=== PATIENT | male | born 1945 | race Caucasian/White ===

== ENCOUNTER 2016-11-01 18:43 | Inpatient (IN) | payer MEDICARE ==
[~2016-11-01] VITALS: Ht 175.3 cm; Wt 130.4 kg
[~2016-11-01 18:43] MED LIST: ACTOPLUS MET 501 TAB PO; ALDACTONE 25MG25 MG NG; AMARYL1 MG PO; AMARYL2 MG PO; ASPIRIN 325MG325 MG PO; ASPIRIN 81MG TA81 MG PO; ASPIRIN325 MG PO; BENZONATATE100 MG PO; CARVEDILOL 25MG25 MG PO; CIPRO 500MG TA500 MG PO; COREG25 MG PO; DILANTIN100 MG PO; FUROCOT40 MG PO; FUROSEMIDE 20MG20 MG PO; GABAPENTIN300 MG PO; KEFLEX 500MG.500 MG PO; LASIX 40MG. TAB40 MG PO; LEVAQUIN 750 M750 MG PO; LIPITOR10 MG PO; LIPITOR20 MG PO; LISINOPRIL 10MG10 MG PO; LISINOPRIL 20MG20 MG PO; LISINOPRIL10 MG PO; LOSARTAN POTASS50 MG PO; MECLIZINE12.5 MG PO; METFORMIN1000 MG PO; NICODERM C21 MG/24 H TD; NITROGLYCERIN0.4 MG SL; NOMEDS *; NORCO 325 MG-51 TAB PO; POTASSIUM CHLO20 ME2 PO; RELION NOVOLIN10 ML SC; SPIRONOLACTONE25 MG PO; TAMSULOSIN HYD0.4 MG PO; TESSALON PERLE100 MG PO; TRICOR 145 MG145 MG PO; VITAMIN D31000 IU PO
[2016-11-01 18:45] VITALS: BP 162/87
--- NOTE | 2016-11-01 19:05 | Emergency Room Report ---
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 N Clinical Suspician of Infection? N Mental Status: 1 - Regular (Normal Baseline) Sepsis Risk:Low Sepsis Risk Have you (or family members/close friends) recently traveled outside the [place]? N If Yes, where/when: Have you had exposure to infectious disease within the past month? N TB? Other? Specify: Patient noncompliant with meds; reports hx CHF and , progressive wheezing with dry cough last few days, no fever or vomiting. Sats 100 per cent on arrival per EMS with no intervention in the field. No calf pain. ALLERGIES Coded Allergies: No Known Drug Allergies (05/08/16) (Ryan MCFARLANE, Erika Stone) Home Medications Active Scripts PHENYTOIN SODIUM EXTENDED (Dilantin) 300 MG PO QHS 30 Days Prov: 03/23/16 Reported Medications ASPIRIN (Aspirin 325MG) 325 MG PO DAILY Gabapentin (Gabapentin 300MG) 300 MG PO BID Carvedilol (Carvedilol 25MG) 25 MG PO BID LISINOPRIL (Lisinopril) 20 MG PO DAILY NITROGLYCERIN (Nitrostat) 0.4 MG SL PRN PRN CHEST PAIN Glimepiride (Amaryl) 2 MG PO DAILY INSULIN NPH HUM/REG INSULIN HM (Relion Novolin 70-30 Vial) 5 UNITS SC BID #10 (Felipa MCFARLANE,Darek Montez) History Medical History General CAD? Yes Angina: Yes [place]: Yes Hypertension? Yes Hyperlipidemia? Yes CHF? Yes DVT? No PE? No COPD? No Asthma? No Anemia? No GERD? No Gastric ulcers? No GI Bleed? No Hernia? Yes Thyroid Problems? No Hypothyroidism? No CVA? No Seizures? Yes Diabetes? Yes Insulin Dependent: Yes Insulin Pump: No Home FSBS? Yes Renal Insuffiency? No End Stage Renal Disease? No UTI? No Stones? No BPH? No GB Disease: Yes Nephritic Syndrome? No Asplenia? No Hepatitis? Yes Sickle Cell Disease? No Arthritis? Yes Migraines? No Cataracts? Yes Glaucoma? No MRSA? No HIV? No TB? No Anxiety? No Depression? No Cancer? No More? No Immunization Hx DT/Tetanus Unknown Flu Refused Pneumonia Unknown Surgical Hx Previous Surgery?Y Gallbladd CABG X 4 RECTAL CYST Family History Family Hx Diabetes Yes CAD Yes Hypertension Yes Hyperlipidemia Yes Cancer Yes TB No Social History Smoking Hx Smoker: Former Smoker Tobacco: Yes Type Cigarettes Packs/day < 1 Pack Alcohol Alcohol: No (Erika Davis MD) Social History Drugs none (Darek Leo MD) Review of Systems All Other Systems Reviewed and Negative Respiratory see HPI (Erika Davis MD) Cardiovascular denies chest pain, denies palpitations, denies syncope Gastrointestinal denies abdominal pain, denies diarrhea, denies vomiting Genitourinary denies: dysuria, frequency, hesitancy, hematuria. Musculoskeletal denies back pain, denies joint pain, denies joint swelling, denies neck pain Skin denies rash Psychiatric/Neurological see HPI, denies seizure, weakness (Darek Leo MD) Physical Exam Vital Signs Vital Signs Date Time Temp Pulse Resp B/P Pulse O2 O2 Flow FiO2 Ox Delivery Rate 11/02 2019 76 20 174/83 98 11/01 1845 98.2 82 20 162/87 98 General Appearance normal appearance, WD/WN, no apparent distress Eye Exam - bilateral eye normal exam, bilateral eye PERRL, bilateral eye EOMI Neck normal inspection, non-tender, supple, full range of motion Respiratory Status Yes: trachea midline, chest symmetrical, non tender chest, non productive cough. No: respiratory distress, tender on palpation, use of accessory muscles, pain on inspiration, pain on expiration, productive cough. Lung Sounds bilateral: normal breath sounds, lungs clear, wheezing (very mild end expiratory ). Cardiovascular normal exam, regular rate/rhythm, no peripheral edema, no gallop, no JVD, no murmur, no rub, normal peripheral pulses Gastrointestinal normal bowel sounds, normal exam, non tender, soft, no organomegaly, no pulsatile mass, no guarding, no rebound Extremities non-tender, normal range of motion, normal inspection, normal capillary refill, no calf tenderness, no pedal edema Neurologic alert, normal exam, no motor/sensory deficits, oriented x 3 (speech clear; no tremor) Skin intact, warm/dry, pallor Lymphatic no adenopathy (Ryan MCFARLANE, Erika Stone) Strength 4 Upper Ext (L), 4 Upper Ext (R), 4 Lower Ext (L), 4 Lower Ext (R) Mental status altered mental status (Felipa MCFARLANE,Darek Montez) Medical Decision Making LABS/Meds/Orders Pt receiving controlled substance in ED? No Lavelle was queried for this patient? No Results/Orders Laboratory Tests 11/01/161939: TSH Pending, Thyroxine (T4) Pending 11/01/161939: Lactic Acid 0.5 11/01/161939: Sodium 114 *L, Potassium 4.1, Chloride 86 L, Carbon Dioxide 17 L, BUN 22 H, Creatinine 2.0 H, Estimated Creat Clear 67, Estimated GFR (MDRD) 33, Glucose 131 H, Calcium 7.9 L, Total Bilirubin 0.4, AST 14 L, ALT 17, Alkaline Phosphatase 168 H, Troponin I 0.02, B-Natriuretic Peptide 1110 H, Total Protein 5.9 L, Albumin 3.2 L, Globulin 2.7, Albumin/Globulin Ratio 1.2, WBC 6.0, RBC 3.01 L, Hgb 9.0 L, Hct 24.9 L, MCV 82.2, RDW 15.4, Plt Count 130 L, MPV 5.5 L, Gran % 80.4 H, Gran # 4.9, Lymphocytes % 12.1, Monocytes % 5.4, Eosinophils % 1.9, Basophils % 0.2, Lymphocytes # 0.7, Monocytes # 0.3, Eosinophils # 0.1, Basophils # 0.0, PUBS MCHC 36.4 H, MCH 30.0 Current Medication Orders Sig/Cr Start time Last Medication Dose Route Stop Time Status Admin Miscellaneous 1 UNIT ONCE ONE 11/01 2029 DC 11/01 XX 11/01 Albuterol 0 .STK-MED ONE 11/02 2019 DC IH Miscellaneous 0 .STK-MED ONE 11/02 2019 DC XX Sodium Chloride 1,000 ML .STK-MED ONE 11/02 2015 DC IV Ondansetron HCl 4 MG ONCE ONE 11/01 2014 DC 11/01 IV 11/02 2015 2004 Sodium Chloride 1,000 ML .Q1H1M 11/01 2014 DC 11/01 IV 11/01 Sodium Chloride 10 ML PRN PRN 11/01 2014 AC IV 11/02 2013 Albuterol 1 PUFFS ONCE ONE 11/01 1944 DC IH 11/01 1945 Albuterol 2 PUFFS ONCE ONE 11/01 1944 DC 11/01 IH 11/01 Miscellaneous 1 UNIT ONCE ONE 11/01 1944 CAN XX 11/01 1945 Orders Procedure Date/time Status DIET-NOTHING BY MOUTH 11/02 B Active Decision to admit 11/02 2123 Active THYROID STIMULATING HORMONE 11/01 2121 Active THYROXINE (T4) 11/[address] ABD & PELVIS W/O CONTRAST 11/[address] ABD/PELVIS REQ 11/01 2014 Complete URINALYSIS/COMPLETE 11/01 2014 Active RT REQUEST ALBUTEROL INHALER 11/01 1941 Active RT REQUEST ALBUTEROL INHALER 11/01 1940 Active 12 LEAD EKG-JACINTA (INITIAL) 11/01 1849 Active ELECTROCARDIOGRAM REQUEST 11/01 1849 Active CHEST-PORTABLE 11/01 1849 Active CULTURE, BLOOD 11/01 1849 Active TROPONIN I 11/01 1849 Complete LACTIC ACID 11/01 1849 Complete CBC WITH AUTO DIFF 11/01 1849 Complete CHEM 12 PROFILE 11/01 1849 Complete BRAIN NATRIURETIC PEPTIDE 11/01 1849 Complete CM/EKG CM/EKG EKG rate, NSR, rhythm, no ectopy, normal QRS, normal [place], normal EKG, compared w/(date of old) (no change from 03/12/16), first degree AVB seen previously; poor R wave progression, nonspecific ST changes. XRAY/CT/US XRAY/CT/US XRAY chest XR interpretation by reviewed by me Xray Results prominent vasculature, CM, sternotomy wires seen previously;neg acute Pulmonary Embolism Score WELL'S CRITERIA FOR PE WELL'S CRITERIA FOR PE Response Value Clinical signs/symptoms of DVT NO 0 PE is #1 diagnosis or equally likely NO 0 Heart rate is > 100 NO 0 Immobile at least 3 days, or surgery in past 4 wks NO 0 Previously, obj. diagnosed PE or DVT NO 0 Hemoptysis NO 0 Malignancy w/Rx within 6mo, or palliative NO 0 Total 0 (Erika Davis MD) LABS/Meds/Orders Pt receiving controlled substance in ED? No XRAY/CT/US XRAY/CT/US 2 CT abdomen, pelvis CT interpretation by discussed w/radiologist Time results known: 2124 CT Results abnormal (see chart) (Darek Leo MD) Departure Departure Time of Disposition 1948 Disposition Still a Patient Condition STABLE Referrals Felipa MCFARLANE,Jace Montez (Family) Patient Instructions Cough Additional Instructions Inhaler one to two puffs every four to six hours as needed for wheezing. ED Critical Care Critical Care No (Erika Davis MD) Departure Clinical Impression Primary Impression: Wheezing on expiration Secondary Impressions: Anemia Qualifiers: Anemia type: unspecified type Qualified Code: D64.9 - Anemia, unspecified Hyponatremia Renal insufficiency (Darek Leo MD) at 1955 at 2127
[2016-11-01 20:19] LABS: LYMPH # 0.7 K/mm3 (0.7-4.5); LYMPH % 12.1 % (10-50)
[2016-11-01 22:41] VITALS: BP 147/84
[2016-11-01 22:46] VITALS: BP 147/84
[2016-11-01] MEDS ORDERED: LIPITOR40 MG PO (23:09)
[2016-11-01] MEDS ORDERED: HYDRALAZINE HCL25 M1 PO (23:10)
[2016-11-01] MEDS ORDERED: ISOSORBIDE MONO60 MG PO (23:11)
[2016-11-01] MEDS ORDERED: SPIRONOLACTONE25 MG PO (23:11)
[2016-11-01] MEDS ORDERED: AMLODIPINE10 M2 PO (23:12)
[2016-11-02 04:00] VITALS: BP 174/86
[2016-11-02 06:23] LABS: LYMPH # 0.7 K/mm3 (0.7-4.5)
[2016-11-02 06:29] LABS: HEMOGLOBIN 8.7 g/dL (14.1-18.0)
[2016-11-02 08:00] VITALS: BP 171/96
--- NOTE | 2016-11-02 08:01 | RADIOLOGY REPORT PS360 ---
CHEST-PORTABLE HISTORY: wheezing and cough hx COPD ORDERING PHYSICIAN: Erika Davis MD PATIENT AGE: 71 years COMPARISON: 03/22/2016 FINDINGS: Prior median sternotomy. Low lung volumes with motion artifact. Cardiomegaly. The lung bases are secured from the motion. Right perihilar consolidation/pneumonia. Small bilateral effusions. IMPRESSION: Limited exam demonstrating right perihilar consolidation/pneumonia or mass with small bilateral effusions. Follow-up recommended
--- NOTE | 2016-11-02 08:24 | RADIOLOGY REPORT PS360 ---
CT ABD PELVIS W/O CONTRAST CLINICAL INDICATION: ABD PAIN WITH DIARRHEA ORDERING PHYSICIAN: Jace Leo MD PATIENT AGE: 71 years COMPARISON: 03/30/2014 TECHNIQUE: Axial images obtained with sagittal and coronal reformats. PROCEDURE: Oral Contrast: None IV Contrast: None . FINDINGS: Lower thorax: There are bilateral pleural effusions with bibasilar atelectatic changes ABDOMEN: Considerable artifact is present from patient's arms by his side. Liver: No masses or biliary dilatation. Gallbladder: Cholecystectomy no obvious biliary dilatation Pancreas: No masses or peripancreatic fluid collections. Spleen: Unremarkable. Adrenals: Unremarkable Kidneys/ureters: No hydronephrosis or obstructing renal or ureteral calculi. There is bilateral scarring. Stomach bowel: There is an umbilical hernia containing fat measuring 3 cm in diameter. No intragraft bowel. No intestinal obstruction or free air. Bowel gas pattern is nonspecific. Appendix: No evidence of appendicitis. PELVIS: Bladder:: Mild nonspecific thickening of the urinary bladder wall with mild distention of the urinary bladder. Reproductive: Mild prostate calcification ABDOMEN & PELVIS: Peritoneum: No abnormal fluid collections. No obvious inflammatory changes. No free air. Lymph nodes: No enlarged lymph nodes apparent. Vasculature: No evidence of abdominal aortic aneurysm. No retroperitoneal hemorrhage evident. Bones: No acute fracture IMPRESSION: 1. Moderate-sized umbilical hernia containing fat. 2. Limited exam secondary to artifact. No definite acute intra-abdominal or pelvic pathology evident. 3. Other nonacute findings. 4. Bilateral pleural effusions with bibasilar atelectatic change
[2016-11-02] MEDS ORDERED: PHENYTOIN 100M100 MG PO (08:55)
--- NOTE | 2016-11-02 08:58 | HISTORY AND PHYSICAL REPORT ---
Demographics: Admit date: 11/01/16 Chief complaint: weakness PRIMARY DIAGNOSIS: HYPONATREMIA Allergies: Coded Allergies: No Known Allergies (11/02/16) History of present illness: History of present illness: this wm who has progressive weakness over the last few days with inc sob - pt with no chest pain and no melena and reports dec po intake and no excessive po water intake - pt reports blood sugar have been sl high - pt with dec adl- he was seen in the ed and and despite fluids still symptomatic and was admitted Past medical history: Family HX Diabetes Yes CAD Yes Hypertension Yes Hyperlipidemia Yes Cancer Yes TB No Immunization HX DT/Tetanus Has Never Had Flu Refused Pneumonia Never Had TB Test in last year No General CAD? Yes Angina: Yes [place]: Yes Hypertension? Yes Hyperlipidemia? Yes CHF? Yes DVT? No PE? No COPD? No Asthma? No Anemia? No GERD? No Gastric ulcers? No GI Bleed? No Hernia? Yes Thyroid Problems? No Hypothyroidism? No CVA? No Seizures? Yes Diabetes? Yes Insulin Dependent: Yes Insulin Pump: No Home FSBS? Yes Renal Insuffiency? No UTI? No Stones? No BPH? No GB Disease: Yes Nephritic Syndrome? No Asplenia? No Hepatitis? Yes Sickle Cell Disease? No Arthritis? Yes Migraines? No Cataracts? Yes Glaucoma? No MRSA? No HIV? No TB? No Anxiety? No Depression? No Cancer? No More? No Past Surgical HX Previous Surgery?Y Gallbladd CABG X 4 RECTAL CYST Current home meds: Active Scripts PHENYTOIN SODIUM EXTENDED (Dilantin) 300 MG PO QHS 30 Days Prov: 03/23/16 Reported Medications Carvedilol (Carvedilol 25MG) 25 MG PO BID NITROGLYCERIN (Nitrostat) 0.4 MG SL PRN PRN CHEST PAIN ASPIRIN (Aspirin 325MG) 325 MG PO DAILY Glimepiride (Amaryl) 2 MG PO DAILY Atorvastatin Calcium (Atorvastatin) 40 MG PO DAILY Hydralazine Hcl (Hydralazine 25MG Tab) 25 MG PO TID Spironolactone (Spironolactone) 25 MG PO DAILY ISOSORBIDE MONONITRATE (Isosorbide Mononitrate ER) 60 MG PO QAM Amlodipine Besylate (Amlodipine) 10 MG PO DAILY PHENYTOIN SODIUM EXTENDED (Phenytoin 100MG Capsule) 200 MG PO DAILY Social Hx: Smoking HX Tobacco Yes Type Cigarettes Packs/day < 1 PACK Alcohol Alcohol: No Hx of Drug Use Drug Use? No Patien't marital status is Patient's support system is good Review of systems: Constitutional No: fever. Eyes No: drainage. Ears, Nose, Mouth, Throat No ear pain, No epistaxis, No throat pain Respiratory shortness of breath. No: cough, wheezing. Cardiovascular No chest pain, No palpitations, No syncope Gastrointestinal/Abdominal see HPI, No abdominal pain, nausea, poor appetite, poor fluid intake, No vomiting Genitourinary No: dysuria, frequency, hesitancy, hematuria. Musculoskeletal No: back pain, joint pain, joint swelling, neck pain. Skin No: rash. Neurological Yes: see HPI, weakness. No: headache, seizure disorder. Psychiatric No: depressed. Exam: Lab data for last 24 hours: Laboratory Tests 11/02/16 0637: POC Glucose 117 H 11/02/16 0605: Sodium 116 L, Potassium 3.9, Chloride 89 L, Carbon Dioxide 18 L, BUN 22 H, Creatinine 2.0 H, Estimated Creat Clear 62, Estimated GFR (MDRD) 33, Glucose 106, Calcium 7.8 L, WBC 5.3, RBC 2.93 L, Hgb 8.7 L, Hct 23.8 *L, MCV 80.6 L, RDW 15.2, Plt Count 105 L, MPV 5.3 L, Gran % 78.1, Gran # 4.2, Lymphocytes % 13.0, Monocytes % 6.9, Eosinophils % 1.9, Basophils % 0.1, Lymphocytes # 0.7, Monocytes # 0.4, Eosinophils # 0.1, Basophils # 0.0, PUBS MCHC 36.0 H, MCH 29.0 11/01/161939: TSH 5.81 H, Thyroxine (T4) 5.9 11/01/161939: Lactic Acid 0.5 11/01/161939: Sodium 114 *L, Potassium 4.1, Chloride 86 L, Carbon Dioxide 17 L, BUN 22 H, Creatinine 2.0 H, Estimated Creat Clear 67, Estimated GFR (MDRD) 33, Glucose 131 H, Calcium 7.9 L, Total Bilirubin 0.4, AST 14 L, ALT 17, Alkaline Phosphatase 168 H, Troponin I 0.02, B-Natriuretic Peptide 1110 H, Total Protein 5.9 L, Albumin 3.2 L, Globulin 2.7, Albumin/Globulin Ratio 1.2, WBC 6.0, RBC 3.01 L, Hgb 9.0 L, Hct 24.9 L, MCV 82.2, RDW 15.4, Plt Count 130 L, MPV 5.5 L, Gran % 80.4 H, Gran # 4.9, Lymphocytes % 12.1, Monocytes % 5.4, Eosinophils % 1.9, Basophils % 0.2, Lymphocytes # 0.7, Monocytes # 0.3, Eosinophils # 0.1, Basophils # 0.0, PUBS MCHC 36.4 H, MCH 30.0, Phenytoin 3.7 L Microbiology 11/02 1939 BLOOD: Anaerobic Blood Culture - RECD 11/02 1939 BLOOD: Aerobic Blood Culture - RECD 11/02 1939 BLOOD: Anaerobic Blood Culture - RECD 11/02 1939 BLOOD: Aerobic Blood Culture - RECD Admission vital signs: 1ST Vital Signs Result Date Time Pulse Ox 98 11/01 1845 B/P 162/87 11/01 184 Temp 98.2 11/01 184 Pulse 82 11/01 1845 Resp 20 11/01 184 O2 Delivery ROOM AIR 11/01 2241 Exam General appearance: alert Eyes: PERRLA ENT: dry mucous membranes Neck: no JVD Cardiovascular: regular rate & rhythm, murmur Respiratory: diminished breath sounds ABD: soft, no guarding, no organomegaly Genitourinary: no hematuria Extremities: moves all Musculoskeletal: equal muscle strength Skin: pale 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 Hyponatremia 2. 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 Renal insufficiency Plan: will hydrate and restrict fluids and do ct chest at 0902
[2016-11-02 09:13] VITALS: BP 171/96
--- NOTE | 2016-11-02 09:38 | PHARMACY CLINIC NOTE ---
Patient Demographics Patient Demographics Admission date: 11/02/16 Date: 11/02/16 Time: 0938 Allergies Coded Allergies: No Known Allergies (11/02/16) HEIGHT- FT: 5 IN: 9.00 K.185 VTE General Information Labs: Laboratory Tests 11/02 11/01 0605 1940 Hematology Hgb (14.1 - 18.0 g/dL) 8.7 L 9.0 L Hct (42.0 - 52.0 %) 23.8 *L 24.9 L Plt Count (142 - 424 K/mm3) 105 L 130 L Disclaimer The following section includes nursing documentation that has been pulled in for pharmacy review. Patient's VTE score: 4 Patient's VTE Risk: LOW RISK Clinical trial participant? No VTE prophylaxis [id number] VTE prophylaxis ordered? Yes Type of prophylaxis/treatment: MICHELE at 0938
--- NOTE | 2016-11-02 14:24 | RADIOLOGY REPORT PS360 ---
CT CHEST W/O CONTRAST HISTORY: SOB, ABNORMAL CXR, possible right perihilar mass ORDERING PHYSICIAN: Jace Leo MD PATIENT AGE: 71 years TECHNIQUE: Helical acquisition obtainedwithout contrast. Axial, sagittal, and coronal reformatted images are generated and reviewed. COMPARISON: Radiograph of 11/01/2016 FINDINGS: The heart size is normal. No pericardial effusion. Coronary artery calcifications are present. There has been a prior median sternotomy. There are small to medium sized bilateral pleural effusions. No hilar mass is evident. The abnormality noted on the radiograph is felt to have represented crowding of the overlying hilar vessels as well as superimposition of fibrosis or atelectatic change in the right middle lobe along with a small amount of fluid in the right major fissure. No lobar consolidation or collapse. IMPRESSION: 1. No hilar mass or pulmonary mass evident. 2. Prominent right hilum on the radiograph is felt to be related to prominent vascularity as well as superimposition of right-sided effusion and atelectatic or fibrotic changes in the right middle lobe. 3. Small to medium sized bilateral pleural effusions. 4. Coronary artery disease
[2016-11-02 16:00] VITALS: BP 164/97
[2016-11-02 20:12] VITALS: BP 156/86
[2016-11-03 03:44] VITALS: BP 161/91
[2016-11-03 08:05] VITALS: BP 148/69
[2016-11-03 08:35] VITALS: BP 148/69
--- NOTE | 2016-11-03 08:37 | ACUTE CARE PROGRESS NOTE (QUA) ---
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 Hyponatremia 2. 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 Renal insufficiency Patient condition Stable Plan: order additional tests This inpt stay is expected to cross 2 MNs from start of care Yes Comments: pt reports feeling better and will check labs today - at 0837
--- NOTE | 2016-11-03 08:37 | ACUTE CARE PROGRESS NOTE (QUA) ---
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 Hyponatremia 2. 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 Renal insufficiency Patient condition Stable Plan: order additional tests This inpt stay is expected to cross 2 MNs from start of care Yes Comments: pt reports feeling better and will check labs today - at 0837
[2016-11-03 08:56] LABS: HEMOGLOBIN 9.2 g/dL (14.1-18.0); LYMPH # 0.7 K/mm3 (0.7-4.5); LYMPH % 13.8 % (10-50)
[2016-11-03 16:09] VITALS: BP 140/81
[2016-11-03 20:14] VITALS: BP 156/67
[2016-11-03 21:41] VITALS: BP 156/67
[2016-11-04] VITALS (22 sets, daily range): BP systolic 124–170; BP diastolic 34–107
[2016-11-04 05:36] LABS: URINE BILIRUBIN - DIPSTICK NEGATIVE (NEG); URINE BLOOD 1+ (NEG)
[2016-11-04 05:47] LABS: URINE SQUAMOUS CELLS OCC #/hpf (OCC)
[2016-11-04 06:24] LABS: LYMPH # 0.9 K/mm3 (0.7-4.5); LYMPH % 18.6 % (10-50)
[2016-11-04 06:30] LABS: HEMOGLOBIN 8.8 g/dL (14.1-18.0)
--- NOTE | 2016-11-04 08:50 | ACUTE CARE PROGRESS NOTE (QUA) ---
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 Hyponatremia 2. 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 Renal insufficiency Patient condition Stable Plan: make medication changes, order additional tests This inpt stay is expected to cross 2 MNs from start of care Yes Comments: will discuss hypertonic saline with pharm and will transfuse Antibiotic Stewardship (2) Current Culture Results Microbiology 11/02 1939 BLOOD: Anaerobic Blood Culture - RECD 11/02 1939 BLOOD: Aerobic Blood Culture - RECD Infxn that will respond? No Right drug,dose,and route? No More targeted antbx? No How long atbx needed? 0 Comment: no abx at this time at 0850
[2016-11-04 11:15] LABS: ABO BLOOD TYPE B; ANTIHUMAN GLOB CROSSMATCH COMPAT; RH BLOOD TYPE POSITIVE
[2016-11-04 18:29] LABS: HEMOGLOBIN 10.7 g/dL (14.1-18.0)
[2016-11-05 04:14] VITALS: BP 142/71
[2016-11-05 08:00] VITALS: BP 147/80; BP 183/96
[2016-11-05 08:32] VITALS: BP 142/71
--- NOTE | 2016-11-05 09:20 | CONSULT NOTE ---
Pharmacokinetic Consult Date of consult: 11/05/16 Time of consult: 912 Referring provider: DR. LYN Reason for consult: HYPERTONIC SALINE DOSING Allergies: Coded Allergies: No Known Allergies (11/02/16) Home Medications: Active Scripts PHENYTOIN SODIUM EXTENDED (Dilantin) 300 MG PO QHS 30 Days Prov: 03/23/16 Reported Medications Carvedilol (Carvedilol 25MG) 25 MG PO BID NITROGLYCERIN (Nitrostat) 0.4 MG SL PRN PRN CHEST PAIN ASPIRIN (Aspirin 325MG) 325 MG PO DAILY Glimepiride (Amaryl) 2 MG PO DAILY Atorvastatin Calcium (Atorvastatin) 40 MG PO DAILY Hydralazine Hcl (Hydralazine 25MG Tab) 25 MG PO TID Spironolactone (Spironolactone) 25 MG PO DAILY ISOSORBIDE MONONITRATE (Isosorbide Mononitrate ER) 60 MG PO QAM Amlodipine Besylate (Amlodipine) 10 MG PO DAILY PHENYTOIN SODIUM EXTENDED (Phenytoin 100MG Capsule) 200 MG PO DAILY Height (feet): 5 Height (inches): 9.00 Medical History: CAD? Yes Angina: Yes [place]: Yes Hypertension? Yes Hyperlipidemia? Yes CHF? Yes DVT? No PE? No COPD? No Asthma? No Anemia? No GERD? No Gastric ulcers? No GI Bleed? No Hernia? Yes Thyroid Problems? No Hypothyroidism? No CVA? No Seizures? Yes Diabetes? Yes Insulin Dependent: Yes Insulin Pump: No Home FSBS? Yes Renal Insuffiency? No UTI? No Stones? No BPH? No GB Disease: Yes Nephritic Syndrome? No Asplenia? No Hepatitis? Yes Sickle Cell Disease? No Arthritis? Yes Migraines? No Cataracts? Yes Glaucoma? No MRSA? No HIV? No TB? No Anxiety? No Depression? No Cancer? No More? No Labs: Laboratory Tests 11/05/16 0620: Sodium 127 L, Potassium 4.0, Chloride 100, Carbon Dioxide 18 L, BUN 24 H, Creatinine 2.0 H, Estimated Creat Clear 65, Estimated GFR (MDRD) 33, Glucose 97 , Calcium 7.8 L 11/05/16 0605: POC Glucose 102 11/04/16 2016: POC Glucose 179 H 11/04/16 1755: Hgb 10.7 L, Hct 30.1 L 11/04/16 1653: POC Glucose 129 H 11/04/16 1423: Misc Test Units BLOOD UNIT RELEASE 11/04/16 1208: POC Glucose 124 H 11/04/16 1140: Misc Test Units BLOOD UNIT RELEASE Problem List: 1. Hyponatremia Plan: PATIENT'S SODIUM LEVEL WAS 118 MMOL/L YESTERDAY AT 1331. PATIENT RECEIVED BLOOD TRANSFUSION X2 YESTERDAY. RECOMMENDED PATIENT RECEVIE 500 ML OF 3% SALINE AFTER BLOOD TRANSFUSION. DISCUSSED THIS WITH DR. LYN AND DECIDED TO RUN SLOWLY OVER 7 HRS. THIS MORNING, THE PATIENT'S SODIUM LEVEL HAS IMPROVED AT 127 MMOL/L AT 0722. RECOMMEND AT THIS TIME TO ADD 1 ADDITIONAL BAG OF HYPERTONIC SALINE TO INCREASE SODIUM LEVEL OVERNIGHT. RECOMMEND THAT THE SECOND BAG RUN SLOWER OVER 12 HRS STARTING AT 2100 TONIGHT. PHARMACY WILL FOLLOW DAILY. BRIGIDO MOTA, PHARMD at 0919
[2016-11-05 16:00] VITALS: BP 157/74
[2016-11-05 19:45] VITALS: BP 184/78
[2016-11-05 20:46] LABS: STOOL OCCULT BLOOD NEGATIVE (NEG)
--- NOTE | 2016-11-05 20:53 | ACUTE CARE PROGRESS NOTE (QUA) ---
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 Hyponatremia 2. 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 Renal insufficiency Patient condition Improving Plan: make medication changes This inpt stay is expected to cross 2 MNs from start of care Yes Comments: will check bmp and determine need for more hypertonic saline Antibiotic Stewardship (2) Current Culture Results Microbiology 11/02 1939 BLOOD: Anaerobic Blood Culture - RES 11/02 1939 BLOOD: Aerobic Blood Culture - RES Infxn that will respond? No Right drug,dose,and route? No More targeted antbx? No at [id number]
--- NOTE | 2016-11-05 20:53 | ACUTE CARE PROGRESS NOTE (QUA) ---
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 Hyponatremia 2. 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 Renal insufficiency Patient condition Improving Plan: make medication changes This inpt stay is expected to cross 2 MNs from start of care Yes Comments: will check bmp and determine need for more hypertonic saline Antibiotic Stewardship (2) Current Culture Results Microbiology 11/02 1939 BLOOD: Anaerobic Blood Culture - RES 11/02 1939 BLOOD: Aerobic Blood Culture - RES Infxn that will respond? No Right drug,dose,and route? No More targeted antbx? No at 2051
[2016-11-06 05:00] VITALS: BP 193/80
--- NOTE | 2016-11-06 07:53 | ACUTE CARE PROGRESS NOTE (QUA) ---
Progress Notes Subjective Date 11/06/16 Time 0748 Note doing better Patient/family reports: feeling better, diff walking Nursing reports: no complaints Objective Findings Last VS-Temp:97.7 B/P:193/80 Pulse:77 Resp:18 SaO2:97 ROOM AIR Last weight lbs:287 oz:7 K.379 Method:Bed Scales Exam General appearance: alert Eyes: anicteric ENT: dry mucous membranes Neck: no JVD Cardiovascular: regular rate & rhythm Respiratory: no respiratory distress ABD: soft Genitourinary: no hematuria Extremities: moves all, edema Musculoskeletal: equal muscle strength Skin: dry Neuro: alert, manager wireless II-XII nml as tested Reviewed: allergies, medications, vital signs, lab results Assessment/Plan Problem List 1. Hyponatremia 2. 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 Renal insufficiency 4. HTN (hypertension) Status: Chronic 5. Neuropathy Patient condition Improving Plan: continue current care This inpt stay is expected to cross 2 MNs from start of care Yes Comments: will have oob and see if he can maintain na levels Antibiotic Stewardship (2) Current Culture Results Microbiology 11/02 1939 BLOOD: Anaerobic Blood Culture - RES 11/02 1939 BLOOD: Aerobic Blood Culture - RES Infxn that will respond? No Right drug,dose,and route? No More targeted antbx? No at [id number]
--- NOTE | 2016-11-06 07:53 | ACUTE CARE PROGRESS NOTE (QUA) ---
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 Hyponatremia 2. 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 Renal insufficiency 4. HTN (hypertension) Status: Chronic 5. Neuropathy Patient condition Improving Plan: continue current care This inpt stay is expected to cross 2 MNs from start of care Yes Comments: will have oob and see if he can maintain na levels Antibiotic Stewardship (2) Current Culture Results Microbiology 11/02 1939 BLOOD: Anaerobic Blood Culture - RES 11/02 1939 BLOOD: Aerobic Blood Culture - RES Infxn that will respond? No Right drug,dose,and route? No More targeted antbx? No at [id number]
[2016-11-06 08:17] VITALS: BP 184/77
[2016-11-06 09:56] VITALS: BP 184/77
[2016-11-06 16:04] VITALS: BP 120/60
[2016-11-06 19:43] VITALS: BP 141/68
[2016-11-06 21:15] VITALS: BP 141/68
[2016-11-07 05:03] VITALS: BP 136/64
--- NOTE | 2016-11-07 07:57 | ACUTE CARE PROGRESS NOTE (QUA) ---
Progress Notes Subjective Date 11/07/16 Time 0754 Patient/family reports: feeling better, no complaints Nursing reports: alert Objective Findings Last VS-Temp:97.5 B/P:136/64 Pulse:76 Resp:18 SaO2:97 ROOM AIR Last weight lbs:287 oz:6 K.351 Method:Bed Scales Exam General appearance: normal appearance, active, awake Eyes: normal exam ENT: normal exam Neck: normal inspection, full range of motion Cardiovascular: normal exam, regular rate & rhythm Respiratory: normal exam ABD: normal exam, soft Genitourinary: normal voiding & quantity Extremities: normal exam, warm Musculoskeletal: normal exam Skin: normal exam, intact, warm Neuro: normal exam, alert, intact, oriented Reviewed: allergies, medications, vital signs, lab results Assessment/Plan Problem List 1. Hyponatremia 2. 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 Renal insufficiency 4. HTN (hypertension) Status: Chronic 5. Neuropathy Patient condition Stable Plan: continue current care This inpt stay is expected to cross 2 MNs from start of care Yes Comments: WAITING ON NA LEVEL POSS DC IF LEVEL REMAINS STABLE. Antibiotic Stewardship (2) Current Culture Results Microbiology 11/02 1939 BLOOD: Anaerobic Blood Culture - COMP 11/02 1939 BLOOD: Aerobic Blood Culture - COMP Infxn that will respond? No Right drug,dose,and route? No More targeted antbx? No at 0756
[2016-11-07 08:30] VITALS: BP 143/66
[2016-11-07 08:42] LABS: HEMOGLOBIN 10.5 g/dL (14.1-18.0); LYMPH # 0.9 K/mm3 (0.7-4.5); LYMPH % 18.3 % (10-50)
--- NOTE | 2016-11-07 09:29 | DISCHARGE SUMMARY STANDARD ---
Demographics Admit date: 11/01/16 Discharge date: 11/07/16 History of present illness History of present illness this wm who has progressive weakness over the last few days with inc sob - pt with no chest pain and no melena and reports dec po intake and no excessive po water intake - pt reports blood sugar have been sl high - pt with dec adl- he was seen in the ed and and despite fluids still symptomatic and was admitted Hospital Course Hospital Course: HYPERNATREMIA: iv fluids, fluid restriction. low H&H; stool for occult blood-neg blood cx neg CT abd pelvis:IMPRESSION: IMPRESSION: 1. Moderate-sized umbilical hernia containing fat. 2. Limited exam secondary to artifact. No definite acute intra-abdominal or pelvic pathology evident. 3. Other nonacute findings. 4. Bilateral pleural effusions with bibasilar atelectatic change CT CHEST:IMPRESSION: 1. No hilar mass or pulmonary mass evident. 2. Prominent right hilum on the radiograph is felt to be related to prominent vascularity as well as superimposition of right-sided effusion and atelectatic or fibrotic changes in the right middle lobe. 3. Small to medium sized bilateral pleural effusions. 4. Coronary artery disease Discharge diagnoses Problem List 1. Hyponatremia 2. 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 Renal insufficiency 4. HTN (hypertension) Status Chronic 5. Neuropathy Medications Medications: Discharge meds are as noted. Follow up Follow up in office in: 5 DAYS with: Felipa MCFARLANE,Jace Montez Comment: follow up in office on monday. at 0931
[2016-11-07 10:08] VITALS: BP 143/66
[2016-11-07 10:21] VITALS: BP 143/66
--- OUTSIDE RECORDS SUMMARY | 2016-11-12 00:43 | External Medical Summary Rpt ---
Demographics Preferred Language Hong Konger Marital Status Unknown Rastafarian Affiliation Unknown Race Unknown Ethnic Group Unknown Author Author , Organization [employer] Address Unknown Phone Unavailable Purpose Continuity of Care Document - through 2016 Immunization No patient found.
--- OUTSIDE RECORDS SUMMARY | 2016-11-12 00:43 | External Medical Summary Rpt ---
Author Author LAN Saucedo, LAN Saucedo Organization [employer] Address Unknown Phone Unavailable
--- OUTSIDE RECORDS SUMMARY | 2016-11-12 00:43 | External Medical Summary Rpt ---
Author Author , Organization [employer] Address Unknown Phone Unavailable Care Team Providers Care Contact Center Agent Name Role Phone DIANE EAST MD, Unavailable Unavailable DIANE EAST MD Purpose Continuity of Care Document - 08-15-2013 through 2016 Problems Code Diagnosis DOS Provider Status 250.00 250.00 DIAB 08-15-2013 [facility], TYPE Hospital II OR UNSPEC TYPE, NOT UNCNTRLD 401.9 401.9 08-15-2013 [place] HYPERTENSIO [facility] NOS Hospital 413.9 413.9 08-15-2013 [place] ANGINA [facility] PECTORIS [facility] NEC/NOS 428.0 428.0 08-15-2013 [place] CONGESTIVE [facility] FAILURE NOS 466.0 466.0 ACUTE 08-15-2013 [place] BRONCHITIS [facility] D64.9 ANEMIA, UNSPECIFIED E87.1 HYPO-OSMOLA LITY AND HYPONATREMI A N28.9 DISORDER OF KIDNEY AND URETER, UNSPECIFIED R06.2 WHEEZING R53.1 WEAKNESS Allergies, Adverse Reactions, Alerts Type Allergy to substance Adverse Reaction to Substance Substance Reaction Severity INGREDIENT: NO KNOWN Unknown Unknown - NO KNOWN DRUG ALLERGY Medications Na ND Rx Da Fi Fi Am Da Di Ph RX Ph St me C No te ll ll ou ys ag ar # ys at rm s nt no ma ic us Or Da si cy ia de te s n re d Sa 63 01 0 No li 80 -3 ne 70 0- Lo 10 20 ng Fl 07 14 er us 5 h Ac 10 ti ML ve Sy ri ng e FU 00 01 0 No RO 40 -3 SE 96 0- Lo WI 10 20 ng DE 20 14 er 4 40 Ac ti MG ve /4 ML AL CE 00 01 0 No FT 40 -3 RI 97 0- Lo AX 33 20 ng ON 30 14 er E 4 1 Ac GM ti ve AL SO 00 01 0 No DI 40 -3 UM 97 0- Lo 10 20 ng CH 16 14 er LO 6 RI Ac DE ti ve 0. 9% SO LN Vital Signs 08-15-2013 20:12 Name Value Interpretat Reference Comment ion Range Body 98.2 [degF] Temperature BP 85 mm[Hg] Diastolic BP Systolic 152 mm[Hg] Heart 91 /min Rate/Pulse O2% 98 % Respiratory 20 /min Rate 08-15-2013 18:50 Name Value Interpretat Reference Comment ion Range BP 138 mm[Hg] Diastolic BP Systolic 159 mm[Hg] Heart 77 /min Rate/Pulse O2% 97 % Respiratory 20 /min Rate Results Labs Lab Lab Date Result Refere Interp Status Commen Order Detail nces retati t Range on Bas Metab 2000 Pnl SerPl (08-18-2016 09:48) Comment: Meter: [id number] Plumbing Instructor: [id number] Jessenia Ellen Glucose 145 70-130 complet BldC 017 mg/dL ed Glucomt 09:48 r-mCnc Hgb A1c Bld (08-18-2016 06:45) Comment: The [place] [employer] recommends maintenance of Hemoglobin A1C at 7.0% or lower. Goals for Hemoglobin A1C reduction may need to be modified if hypoglycemia is a problem. Hgb A1c 5.80 % 4.80-5. complet MFr 017 60 ed Bld 06:45 Lipid pnl with direct LDL SerPl (08-18-2016 06:45) Comment: Cholesterol Reference Ranges: Comment: Desirable < 200 mg/dL Comment: Borderline 200-239 mg/dL Comment: High Risk > 239 mg/dL Comment: Comment: Triglyceride Reference Ranges: Comment: Normal < 150 mg/dL Comment: Borderline 150-199 mg/dL Comment: High 200-499 mg/dL Comment: Very High > 499 mg/dL Comment: Comment: HDL Reference Ranges: Comment: Low < 40 mg/dL Comment: High > 59 mg/dL Comment: Comment: LDL Reference Ranges: Comment: Optimal < 100 mg/dL Comment: Near Optimal 100-129 mg/dL Comment: Borderline 130-159 mg/dL Comment: High 160-189 mg/dL Comment: Very High > 189 mg/dL Articho 49 0-130 complet ke IgE 017 mg/dL ed Qn 06:45 HDLc 55 40-60 complet SerPl-m 017 mg/dL ed Cnc 06:45 Trigl 02-2 88 0-150 complet SerPl-m 017 mg/dL ed Cnc 06:45 Cholest 02-2 132 0-200 complet 017 mg/dL ed SerPl-m 06:45 Cnc Bas Metab 2000 Pnl SerPl (08-18-2016 06:45) Comment: National Kidney Foundation Guidelines Comment: Comment: Stage Description GFR Comment: 1 Normal or High 90+ Comment: 2 Mild decrease 60-89 Comment: 3 Moderate decrease 30-59 Comment: 4 Severe decrease 15-29 Comment: 5 Kidney failure <15 BUN/Cre 08-18-2 8.9 7.0-25. complet at 017 0 ed SerPl 06:45 CO2 08-18-2 23.0 20.0-31 complet SerPl-s 017 mmol/L .0 ed Cnc 06:45 Chlorid 08-18-2 107 99-109 complet e 017 mmol/L ed SerPl-s 06:45 Cnc Potassi 3.2 3.5-5.5 complet um 017 mmol/L ed Bld-sCn 06:45 c Sodium 08-18-2 137 132-146 complet Bld-sCn 017 mmol/L ed c 06:45 Creat 08-18-2 1.90 0.60-1. complet Bld-mCn 017 mg/dL 30 ed c 06:45 BUN 08-18-2 17 9-23 complet Bld-mCn 017 mg/dL ed c 06:45 Glucose 08-18-2 155 70-100 complet 017 mg/dL ed Bld-mCn 06:45 c GFR/BSA 35 >60 complet .pred 017 mL/min/ ed SerPl 06:45 1.73 MDRD-Ar VRat Calcium 08-18-2 9.1 8.7-10. complet 017 mg/dL 4 ed XXX-sCn 06:45 c Anion 08-18-2 7.0 3.0-11. complet Gap3 017 mmol/L 0 ed SerPl-s 06:45 Cnc CBC (hemogram) Bld Auto (08-18-2016 06:45) Platele 148 150-450 complet t # Bld 017 10*3/mm ed Auto 06:45 3 PMV Bld 8.0 fL 6.0-12. complet Auto 017 0 ed 06:45 RDW RBC 02-02-2 43.5 fl 37.0-54 complet Auto 017 .0 ed 06:45 RDW RBC 02-02-2 14.3 % 11.3-14 complet 017 .5 ed Auto-Rt 06:45 o MCHC 02-02-2 35.6 32.0-36 complet RBC 017 g/dL .0 ed Auto-mC 06:45 nc MCH RBC 02-2 29.3 pg 27.0-31 complet Qn 017 .0 ed Auto 06:45 MCV RBC 02-02-2 82.2 fL 80.0-99 complet Auto 017 .0 ed 06:45 Hct VFr 02-02-2 32.3 % 38.9-50 complet Bld 017 .9 ed Auto 06:45 Hgb -02-2 11.5 13.1-17 complet Bld-mCn 017 g/dL .5 ed c 06:45 RBC # 02-02-2 3.93 4.20-5. complet Bld 017 10*6/mm 76 ed Auto 06:45 3 WBC 02-02-2 5.91 3.50-10 complet nRBC 017 10*3/mm .80 ed cor # 06:45 3 Bld Bas Metab 2000 Pnl SerPl (08-18-2016 06:39) Comment: Meter: [id number] Plumbing Instructor: [id number] Willie Bradley Glucose 146 70-130 complet BldC 017 mg/dL ed Glucomt 06:39 r-nc COMPREHENSIVE METABOLIC PANEL (08-15-2013 18:20) Glucose 152 74-106 complet 014 mg/dL ed Bld-mCn 18:20 c BUN 15 7-18 complet Bld-mCn 014 mg/dL ed c 18:20 Creat 1.5 0.8-1.3 complet SerPl-m 014 mg/dL ed Cnc 18:20 Creat 96 50-200 complet Cl 014 ML/MIN ed predict 18:20 ed SerPl C-G-vRa te GFR/BSA 47 Greater complet .pred 014 ML/MIN than ed SerPl 18:20 60 Schwart z-vRate Sodium 129 136-145 complet SerPl-s 014 mmoL/L ed Cnc 18:20 Potassi 4.1 3.5-5.1 complet um 014 mmoL/L ed SerPl-s 18:20 Cnc Chlorid 95 98-107 complet e 014 mmoL/L ed SerPl-s 18:20 Cnc CO2 22 21.0-32 complet SerPl-s 014 mmoL/L .0 ed Cnc 18:20 Calcium 8.6 8.5-10. complet 014 mg/dL 1 ed SerPl-m 18:20 Cnc Prot 7.3 6.4-8.2 complet SerPl-m 014 gm/dL ed Cnc 18:20 Albumin 3.8 3.4-5.0 complet 014 gm/dL ed SerPl-m 18:20 Cnc Globuli 3.5 1.3-3.2 complet n 014 gm/dL ed Ser-mCn 18:20 c Albumin 1.1 UNK 1.1-1.8 complet /Glob 014 ed SerPl-m 18:20 Rto Bilirub 1.5 0.2-1.0 complet 014 mg/dL ed SerPl-m 18:20 Cnc AST 9 U/L 15-37 complet SerPl-c 014 ed Cnc 18:20 ALT 16 U/L 12-78 complet SerPl-c 014 ed Cnc 18:20 ALP 138 U/L 50-136 complet SerPl-c 014 ed Cnc 18:20 BNP Bld-mCnc (08-15-2013 18:20) BNP 1290 0-100 complet Bld-mCn 014 pg/mL ed c 18:20 CBC with AUTO DIFF (08-15-2013 18:20) WBC # 08-15- 10.4 4.8-10. complet Bld 014 K/MM3 8 ed Auto 18:20 RBC # 08-15- 5.00 4.6-6.2 complet Bld 014 M/mm3 ed Auto 18:20 Hgb 14.4 14.1-18 complet Bld-mCn 014 g/dL .0 ed c 18:20 Hct Fr 40.7 % 42.0-52 complet Bld 014 .0 ed 18:20 MCV RBC 81.4 fl 82.2-97 complet 014 .8 ed 18:20 MCH RBC 28.7 pg 27-31.2 complet Qn 014 ed Auto 18:20 MEAN 35.3 31.8-35 complet CORPUSC 014 g/dl .4 ed ULAR 18:20 HGB CONC RDW RBC 15.7 % 11.5-17 complet Auto 014 .5 ed 18:20 Platele 257 142-424 complet t Bld 014 K/mm3 ed Ql 18:20 Manual MEAN 7.1 fl 7.4-10. complet PLATELE 014 4 ed T 18:20 VOLUME Granulo 70.7 % 37.0-80 complet cytes 014 .0 ed Fr Bld 18:20 Auto LYMPH % 20.0 % 10-50 complet 014 ed 18:20 Monocyt 5.3 % 1.7-9.3 complet es Fr 014 ed Bld 18:20 Auto Eosinop 2 3.5 % 0.1-12. complet hil Fr 014 0 ed Bld 18:20 Auto Basophi 08-15-2 0.4 % 0.1-2.0 complet ls Fr 014 ed Bld 18:20 Auto Granulo 08-15-2 7.4 1.3-8.0 complet cytes # 014 K/mm3 ed Bld 18:20 Auto Lymphoc 2 2.1 0.7-4.5 complet ytes Fr 014 K/mm3 ed Bld 18:20 Auto Monocyt 08-15-2 0.6 0.1-1.0 complet es # 014 K/mm3 ed Bld 18:20 Auto Eosinop 08-15-2 0.4 0.0-0.4 complet hil # 014 K/mm3 ed Bld 18:20 Auto Basophi 2 0.0 0-0.2 complet ls # 014 K/MM3 ed Bld 18:20 Auto Encounters Encounter Start End Date Code Location Performer Type Date Emergency BERNARDA EAST MD (ER) 4 18:59 4 20:23 [facility]
--- OUTSIDE RECORDS SUMMARY | 2016-11-12 00:43 | External Medical Summary Rpt ---
Demographics Preferred Language Malaysian Marital Status Unknown Sabianism Affiliation Unknown Race Unknown Ethnic Group Unknown Author Author , Organization [employer] Address Unknown Phone Unavailable Purpose Continuity of Care Document - through 2016 Immunization No patient found.
--- OUTSIDE RECORDS SUMMARY | 2016-11-12 00:43 | External Medical Summary Rpt ---
Author Author , Organization [employer] Address Unknown Phone Unavailable Care Team Providers Care Electrical Line Mechanic Name Role Phone DIANE EAST MD, Unavailable Unavailable DIANE EAST MD Purpose Continuity of Care Document - 08-15-2013 through 2016 Problems Code Diagnosis DOS Provider Status 250.00 250.00 DIAB 08-15-2013 [facility], TYPE Hospital II OR UNSPEC TYPE, NOT UNCNTRLD 401.9 401.9 08-15-2013 [place] HYPERTENSIO [facility] NOS Hospital 413.9 413.9 08-15-[address] [place] [address] [facility] NEC/NOS 428.0 428.0 08-15-2013 [place] CONGESTIVE [facility] FAILURE NOS 466.0 466.0 ACUTE 08-15-2013 [place] BRONCHITIS [facility] D64.9 ANEMIA, UNSPECIFIED E87.1 HYPO-OSMOLA LITY [...] RO 40 -3 SE 96 0- Lo [place] 10 20 ng DE 20 14 er [...] 2000 Pnl SerPl (08-18-2016 09:48) Comment: Meter: [id number] Wire Annealer: [id number] Jessenia Ellen Glucose 145 70-130 complet BldC 017 mg/dL ed Glucomt 09:48 r-mCnc Hgb A1c Bld (08-18-2016 06:45) Comment: The [place] Diabetes [employer] recommends maintenance of Hemoglobin A1C [...] 2000 Pnl SerPl (08-18-2016 06:39) Comment: Meter: [id number] Wire Annealer: [id number] Willie Bradley Glucose 146 70-130 complet BldC [...] EAST MD (ER) 4 18:59 4 20:23 [facility]
--- OUTSIDE RECORDS SUMMARY | 2016-11-12 00:44 | External Medical Summary Rpt ---
Author Author , Organization [employer] Address Unknown Phone Unavailable Care Team Providers Care Mail Sorting Supervisor Name Role Phone DIANE EAST MD, Unavailable Unavailable DIANE EAST MD Purpose Continuity of Care Document - 08-15-2013 through 2016 Problems Code Diagnosis DOS Provider Status 250.00 250.00 DIAB 08-15-2013 [facility], TYPE Hospital II OR UNSPEC TYPE, NOT UNCNTRLD 401.9 401.9 08-15-2013 [place] HYPERTENSIO [facility] NOS Hospital 413.9 413.9 08-15-2013 [place] ANGINA [facility] PECTORIS [facility] NEC/NOS 428.0 428.0 08-15-2013 [place] CONGESTIVE [facility] FAILURE NOS 466.0 466.0 ACUTE 08-15-2013 [place] BRONCHITIS [facility] D64.9 ANEMIA, UNSPECIFIED E87.1 HYPO-OSMOLA LITY AND [...] RO 40 -3 SE 96 0- Lo [place] 10 20 ng DE 20 14 er [...] nces retati t Range on Bas Metab 1999 Pnl SerPl (08-18-2016 09:48) Comment: Meter: [id number] Client Application Support Engineer: [id number] Jessenia Hughes Glucose 145 70-130 complet BldC 017 mg/dL ed Glucomt 09:48 r-mCnc CBC (hemogram) Bld Auto (08-18-2016 06:45) WBC 5.91 3.50-10 complet nRBC 017 10*3/mm .80 ed cor # 06:45 3 Bld RBC # 02-2 3.93 4.20-5. complet Bld 017 10*6/mm 76 ed Auto 06:45 3 Hgb 08-18- 11.5 13.1-17 complet Bld-mCn 017 g/dL .5 ed c 06:45 Hct VFr 08-18- 32.3 % 38.9-50 complet Bld 017 .9 ed Auto 06:45 MCV RBC 08-18-2 82.2 fL 80.0-99 complet Auto 017 .0 ed 06:45 MCH RBC 08-18-2 29.3 pg 27.0-31 complet Qn 017 .0 ed Auto 06:45 MCHC 08-18-2 35.6 32.0-36 complet RBC 017 g/dL .0 ed Auto-mC 06:45 nc RDW RBC 08-18-2 14.3 % 11.3-14 complet 017 .5 ed Auto-Rt 06:45 o RDW RBC 08-18-2 43.5 fl 37.0-54 complet Auto 017 .0 ed 06:45 PMV Bld 02-02-2 8.0 fL 6.0-12. complet Auto 017 0 ed 06:45 Platele 08-18-2 148 150-450 complet t # Bld 017 10*3/mm ed Auto 06:45 3 Bas Metab 2000 Pnl SerPl (08-18-2016 06:45) Comment: National Kidney Foundation Guidelines Comment: Comment: Stage Description GFR Comment: 1 Normal or High 90+ Comment: 2 Mild decrease 60-89 Comment: 3 Moderate decrease 30-59 Comment: 4 Severe decrease 15-29 Comment: 5 Kidney failure <15 Anion 08-18-2 7.0 3.0-11. complet Gap3 017 mmol/L 0 ed SerPl-s 06:45 Cnc Calcium 9.1 8.7-10. complet 017 mg/dL 4 ed XXX-sCn 06:45 c GFR/BSA 35 >60 complet .pred 017 mL/min/ ed SerPl 06:45 1.73 MDRD-Ar VRat Glucose 155 70-100 complet 017 mg/dL ed Bld-mCn 06:45 c BUN 08-18-2 17 9-23 complet Bld-mCn 017 mg/dL ed c 06:45 Creat 08-18-2 1.90 0.60-1. complet Bld-mCn 017 mg/dL 30 ed c 06:45 Sodium 02-2 137 132-146 complet Bld-sCn 017 mmol/L ed c 06:45 Potassi 08-18-2 3.2 3.5-5.5 complet um 017 mmol/L ed Bld-sCn 06:45 c Chlorid 2 107 99-109 complet e 017 mmol/L ed SerPl-s 06:45 Cnc CO2 --2 23.0 20.0-31 complet SerPl-s 017 mmol/L .0 ed Cnc 06:45 BUN/Cre 08-18-2 8.9 7.0-25. complet at 017 0 ed SerPl 06:45 Lipid pnl with direct LDL SerPl [...] mg/dL Comment: Very High > 189 mg/dL Cholest 132 0-200 complet 017 mg/dL ed SerPl-m 06:45 Cnc Trigl 88 0-150 complet SerPl-m 017 mg/dL ed Cnc 06:45 HDLc 55 40-60 complet SerPl-m 017 mg/dL ed Cnc 06:45 Articho 49 0-130 complet ke IgE 017 mg/dL ed Qn 06:45 Hgb A1c Bld (08-18-2016 06:45) Comment: The [place] [employer] recommends maintenance of Hemoglobin A1C at 7.0% or lower. Goals for Hemoglobin A1C reduction may need to be modified if hypoglycemia is a problem. Hgb A1c 5.80 % 4.80-5. complet MFr 017 60 ed Bld 06:45 Bas Metab 2000 Pnl SerPl (08-18-2016 06:39) Comment: Meter: [id number] Client Application Support Engineer: [id number] Willie Bradley Glucose 146 70-130 complet BldC 017 mg/dL ed Glucomt 06:39 r-[facility] COMPREHENSIVE METABOLIC PANEL (08-15-2013 18:20) Glucose 152 [...] EAST MD (ER) 4 18:59 4 20:23 [facility]
--- OUTSIDE RECORDS SUMMARY | 2016-11-12 00:44 | External Medical Summary Rpt ---
Demographics Preferred Language Northern Irish Marital Status Unknown Adventism Affiliation Unknown Race Unknown Ethnic Group Unknown Author Author , Organization [employer] Address Unknown Phone Unavailable Purpose Continuity of Care Document - through 2016 Immunization No patient found.
--- OUTSIDE RECORDS SUMMARY | 2016-11-12 00:44 | External Medical Summary Rpt ---
Author Author , Organization [employer] Address Unknown Phone Unavailable Care Team Providers Care Mailmaster Name Role Phone DIANE EAST MD, Unavailable Unavailable DIANE EAST MD Purpose Continuity of Care Document - 08-15-2013 through 2016 Problems Code Diagnosis DOS Provider Status 250.00 250.00 DIAB 08-15-2013 [facility], TYPE Hospital II OR UNSPEC TYPE, NOT UNCNTRLD 401.9 401.9 08-15-2013 [place] HYPERTENSIO [facility] NOS Hospital 413.9 413.9 08-15-2013 [place] ANGINA [facility] PECTORIS [facility] NEC/NOS 428.0 428.0 08-15-2013 [place] CONGESTIVE [facility] FAILURE NOS 466.0 466.0 ACUTE 08-15-2013 [place] BRONCHITIS [facility] D64.9 ANEMIA, UNSPECIFIED E87.1 HYPO-OSMOLA LITY AND [...] RO 40 -3 SE 96 0- Lo [place] 10 20 ng DE 20 14 er [...] 1999 Pnl SerPl (08-18-2016 09:48) Comment: Meter: [id number] Reweaver: [id number] Jessenia Hughes Glucose 145 70-130 complet BldC [...] Hgb A1c Bld (08-18-2016 06:45) Comment: The [place] [employer] recommends maintenance of Hemoglobin A1C at 7.0% or lower. Goals for Hemoglobin A1C reduction may need to be modified if hypoglycemia is a problem. Hgb A1c 5.80 % 4.80-5. complet MFr 017 60 ed Bld 06:45 Bas Metab 2000 Pnl SerPl (08-18-2016 06:39) Comment: Meter: [id number] Reweaver: [id number] Willie Bradley Glucose 146 70-130 complet BldC 017 mg/dL ed Glucomt 06:39 r-[facility] COMPREHENSIVE METABOLIC PANEL (08-15-2013 18:20) Glucose 152 [...] EAST MD (ER) 4 18:59 4 20:23 [facility]
--- OUTSIDE RECORDS SUMMARY | 2016-11-12 00:44 | External Medical Summary Rpt ---
Demographics Preferred Language Citizen Of [place] Marital Status Unknown Nondenominational Affiliation Unknown Race Unknown Ethnic Group Unknown Author Author , Organization [employer] Address Unknown Phone Unavailable Purpose Continuity of Care Document - through 2016 Immunization No patient found.
--- OUTSIDE RECORDS SUMMARY | 2016-11-12 02:06 | External Medical Summary Rpt ---
Author Author , Organization [employer] Address Unknown Phone Unavailable Care Team Providers Care Alarm Service Technician Name Role Phone DIANE EAST MD, Unavailable Unavailable DIANE EAST MD Purpose Continuity of Care Document - 08-15-2013 through 2016 Problems Code Diagnosis DOS Provider Status 250.00 250.00 DIAB 08-15-2013 [facility], TYPE Hospital II OR UNSPEC TYPE, NOT UNCNTRLD 401.9 401.9 08-15-2013 [place] HYPERTENSIO [facility] NOS Hospital 413.9 413.9 08-15-2013 [place] ANGINA [facility] PECTORIS [facility] NEC/NOS 428.0 428.0 08-15-2013 [place] CONGESTIVE [facility] FAILURE NOS 466.0 466.0 ACUTE 08-15-2013 [place] BRONCHITIS [facility] D64.9 ANEMIA, UNSPECIFIED E87.1 HYPO-OSMOLA LITY [...] RO 40 -3 SE 96 0- Lo [place] 10 20 ng DE 20 14 er [...] 1999 Pnl SerPl (08-18-2016 09:48) Comment: Meter: [id number] Financial Center Manager: [id number] Jessenia Hughes Glucose 145 70-130 complet BldC [...] Hgb A1c Bld (08-18-2016 06:45) Comment: The [place] [employer] recommends maintenance of Hemoglobin A1C at 7.0% or lower. Goals for Hemoglobin A1C reduction may need to be modified if hypoglycemia is a problem. Hgb A1c 5.80 % 4.80-5. complet MFr 017 60 ed Bld 06:45 Bas Metab 2000 Pnl SerPl (08-18-2016 06:39) Comment: Meter: [id number] Financial Center Manager: [id number] Willie Bradley Glucose 146 70-130 complet BldC 017 mg/dL ed Glucomt 06:39 r-[facility] COMPREHENSIVE METABOLIC PANEL (08-15-2013 18:20) Glucose 152 [...] EAST MD (ER) 4 18:59 4 20:23 [facility]
--- OUTSIDE RECORDS SUMMARY | 2016-11-12 02:06 | External Medical Summary Rpt ---
Author Author , Organization [employer] Address Unknown Phone Unavailable Care Team Providers Care Edi Programmer Name Role Phone DIANE EAST MD, Unavailable Unavailable DIANE EAST MD Purpose Continuity of Care Document - 08-15-2013 through 2016 Problems Code Diagnosis DOS Provider Status 250.00 250.00 DIAB 08-15-2013 [facility], TYPE Hospital II OR UNSPEC TYPE, NOT UNCNTRLD 401.9 401.9 08-15-2013 [place] HYPERTENSIO [facility] NOS Hospital 413.9 413.9 08-15-2013 [place] ANGINA [facility] PECTORIS [facility] NEC/NOS 428.0 428.0 08-15-2013 [place] CONGESTIVE [facility] FAILURE NOS 466.0 466.0 ACUTE 08-15-2013 [place] BRONCHITIS [facility] D64.9 ANEMIA, UNSPECIFIED E87.1 HYPO-OSMOLA LITY [...] RO 40 -3 SE 96 0- Lo [place] 10 20 ng DE 20 14 er [...] 1999 Pnl SerPl (08-18-2016 09:48) Comment: Meter: [id number] Advanced Manufacturing Consultant: [id number] Jessenia Hughes Glucose 145 70-130 complet BldC [...] 2000 Pnl SerPl (08-18-2016 06:39) Comment: Meter: [id number] [employer] Consultant: [id number] Willie Bradley Glucose 146 70-130 complet BldC 017 mg/dL ed Glucomt 06:39 r-[facility] COMPREHENSIVE METABOLIC PANEL (08-15-2013 18:20) Glucose [...] EAST MD (ER) 4 18:59 4 20:23 [facility]
--- OUTSIDE RECORDS SUMMARY | 2016-11-12 02:06 | External Medical Summary Rpt ---
Demographics Preferred Language Pakistani Marital Status Unknown Evangelical Affiliation Unknown Race Unknown Ethnic Group Unknown Author Author , Organization [employer] Address Unknown Phone Unavailable Purpose Continuity of Care Document - through 2016 Immunization No patient found.
--- OUTSIDE RECORDS SUMMARY | 2016-11-12 02:06 | External Medical Summary Rpt ---
Demographics Preferred Language Nigerian Marital Status Unknown Jewish Affiliation Unknown Race Unknown Ethnic Group Unknown Author Author , Organization [employer] Address Unknown Phone Unavailable Purpose Continuity of Care Document - through 2016 Immunization No patient found.
== END 2016-11-07 10:30 | disposition home or self-care (01) | DRG 641 ==
LOC: ER 18:43 → 2ND 21:28 → ER 21:28 → 2ND 22:20
PROVIDERS: Emergency Medicine
DX: E87.1 Hypo-osmolality and hyponatremia (principal); E11.40 Type 2 diabetes mellitus with diabetic neuropathy, unspecified; I10 Essential (primary) hypertension; Z79.4 Long term (current) use of insulin; Z95.1 Presence of aortocoronary bypass graft; I25.10 Atherosclerotic heart disease of native coronary artery without angina pectoris
CPT/HCPCS: G0378; J2405; P9016